=== PATIENT | male | born 1955 | race African-American/Black ===

== ENCOUNTER 2023-02-06 09:20 | Outpatient (CLI) | payer MEDICARE | END 2023-02-06 09:21 | disposition home or self-care (01) | LOC: RAD 09:20 | PROVIDERS: ATTEND Nurse Practitioner Family | DX: M25.521 Pain in right elbow (principal); M25.421 Effusion, right elbow; M25.721 Osteophyte, right elbow; M77.8 Other enthesopathies, not elsewhere classified ==

== ENCOUNTER 2025-04-04 09:59 | Outpatient (CLI) | payer MEDICARE | END 2025-04-04 10:00 | disposition home or self-care (01) | LOC: ULT 09:59 | PROVIDERS: ATTEND Internal Medicine Nephrology | DX: N18.30 Chronic kidney disease, stage 3 unspecified (principal) | CPT/HCPCS: 76770 ==